=== PATIENT | female | born 2005 | race Caucasian/White ===

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

== ENCOUNTER 2024-10-10 14:27 | Outpatient (CLI) | payer BC, SELFPAY ==
[2024-10-10 14:16] LABS: Hemoglobin A1C 5.6 % (<5.7)
[2024-10-10 14:57] LABS: TSH (W/Ref FT4) 0.95 uIU/mL (0.36-3.74)
== END 2024-10-10 14:28 | disposition home or self-care (01) ==
LOC: LBO 14:28
PROVIDERS: PCP Nurse Practitioner Pediatrics; Visit Provider Nurse Practitioner Women's Health
DX: R35.89 Other polyuria (principal); N92.6 Irregular menstruation, unspecified
CPT/HCPCS: 36415; 83036; 84443

== ENCOUNTER 2024-11-08 10:49 | Outpatient (REF) | payer BC, SELFPAY | END 2024-11-08 10:50 | disposition home or self-care (01) | LOC: LBN 10:49 | PROVIDERS: PCP Nurse Practitioner Pediatrics; Visit Provider Nurse Practitioner Women's Health | DX: N76.0 Acute vaginitis (principal); N89.8 Other specified noninflammatory disorders of vagina | CPT/HCPCS: 87480; 87510; 87660 ==

== ENCOUNTER 2025-06-19 10:55 | Outpatient (REF) | payer BC, SELFPAY ==
--- NOTE | 2025-06-19 10:40 | PAPFT_PTH ---
PATIENT: Freya Galan LOC: [facility] [id number] AGE/SX: 19/F ROOM: RE06/19/[address]: Ara Liu NP : 2005 BED: DIS: 06/19/2025 SPEC #: [id number] RECD: 06/19/25 12:39 STATUS: EZIO REJelena #: [id number] CAT: 06/19/25 10:[address]: Ara Liu NP DEPT: [facility] Cytology RECD BY: Mago Lin ENTERED: 06/19/25 12:39 SP TYPE: PAPFT OTHR DR: Zion Beasley NP Tissues: 1 - CX/ENDOCX FOR PAP SMEARS Procedures: PAP THIN PREP/[facility] Screening Comments: [id number]
== END 2025-06-19 10:56 | disposition home or self-care (01) ==
LOC: LBN 10:55
PROVIDERS: PCP Nurse Practitioner Pediatrics; Visit Provider Nurse Practitioner Women's Health
DX: Z12.4 Encounter for screening for malignant neoplasm of cervix (principal)
CPT/HCPCS: 88142